=== PATIENT | male | born 1990 | race Caucasian/White ===

== ENCOUNTER 2016-07-12 15:46 | Emergency (ER) | payer SELFPAY ==
[~2016-07-12] VITALS: Ht 165.1 cm; Wt 56.0 kg
[2016-07-12 18:43] VITALS: BP 136/90
[2016-07-12] MEDS ORDERED: DiphenhydrAMINE HCL 25 MG CAPSULE PO ONE (19:00)
== END 2016-07-12 19:28 | disposition home or self-care (01) ==
LOC: EMS 15:52
DX: L01.00 Impetigo, unspecified (principal); F11.90 Opioid use, unspecified, uncomplicated; Z87.891 Personal history of nicotine dependence
CPT/HCPCS: 99283